=== PATIENT | female | born 1935 | race Caucasian/White ===

== ENCOUNTER → 2016-04-27 | Outpatient (CLI) | payer MEDICARE, OTHER ==
[~2016-04-27] MED LIST: ACARBOSE PO; ACARBOSE25 MG PO; ASPIRIN81 M2 PO; ASPIRIN81 MG PO; CALTRATE 600+D PO; CALTRATE 600+D1 EACH PO; CARVEDILOL6.25 MG PO; CEPHALEXIN500 M1 PO; COREG6.25 M1 PO; GABAPENTIN300 M2 PO; GABAPENTIN300 MG PO; KEFLEX PO; LACTULOSE10 G/15 M1 PO; LACTULOSE20 GM/30 M PO; LEVAQUIN PO; LEVEMIR; LEVEMIR100 UNITS/ SUBQ; LIPITOR20 MG PO; LIPITOR40 MG PO; LISINOPRIL10 MG PO; LO-DOSE ASPIRIN81 M1 PO; MAG-OX 400400 M1 PO; MAGNESIUM400 MG PO; NOVOLOG100 U/ML; NOVOLOG100 UNITS/; OMEPRAZOLE40 M1 PO; PENTOXIFYLINE100 GM PO; POTASSIUM CHLO20 ME1 PO; PRILOSEC PO; PRINIVIL10 MG PO; REMERON PO; XIFAXAN550 MG PO; ZINC SULFATE220 M1 PO
[2016-04-27 14:40] LABS: ALBUMIN SERUM 3.4 g/dL (3.5-5.0); BILIRUBIN,TOTAL 0.9 mg/dL (0.2-2.0); BUN/CREATININE RATIO 16.42; CALCIUM SERUM 8.8 mg/dL (8.4-10.2); CREATININE SERUM 1.4 mg/dL (0.6-1.4); GLOM FILT RATE Estimated 38.7 mL/min (>60); PROTEIN TOTAL SERUM 6.2 g/dL (6.0-8.3)
== END | disposition home or self-care (01) ==
LOC: SLAB 13:45
PROVIDERS: Internal Medicine Endocrinology, Diabetes & Metabolism
DX: E11.65 Type 2 diabetes mellitus with hyperglycemia (principal)
CPT/HCPCS: 36415; 80053; 83036

== ENCOUNTER → 2016-05-06 | Outpatient (CLI) | payer MEDICARE, OTHER ==
--- NOTE | ~2016-05-06 | US77 ---
[facility] A Service of [facility] RADIOLOGY TEXT RESULTS PATIENT: REBEKAH PAYTON LOCATION: [facility] : 37 UNIT #: [id number] AGE: [address]: Kyleigh Quintero MD SEX: F ORDER DR: [id number] [address] [address] [id number] O MR#: [id number] Acc #: [id number] NAME: REBEKAH PAYTON : 1935 SEX: F STUDY DATE/TIME: 05/06/2016 13:48 UNIT: CGUS ROOM: STUDY DESCRIPTION: US Kidney Bilateral Complete Attending Physician: Kyleigh Quintero M.D. Referring Physician: Kyleigh Quintero M.D. Ordering Physician: Kyleigh Quintero M.D. Primary Care Physician: Karime Fraser M.D. MEDICAL IMAGING REPORT This report is preliminary unless electronic signature is present EXAM Renal ultrasound. HISTORY Chronic kidney disease, stage III. PROCEDURE Grayscale and Doppler imaging of the kidneys and bladder. COMPARISON 10/11/2013 FINDINGS The right kidney measures 8 cm. Slightly increased echotexture. Left kidney measures 10.1 cm. There is a 2.6-cm cyst in the upper pole of the left kidney. No hydronephrosis. Unremarkable bladder. IMPRESSION 1. Slightly increased renal echotexture suggesting change of chronic renal disease. 2. Cyst in the upper pole of the left kidney. Dictated by... Nino Cruz M.D. THIS IS AN ELECTRONICALLY VERIFIED REPORT Nino Cruz M.D. at 05/08/2016 9:51 PM DAGOBERTO/vishnu TD: 05/06/2016 18:20 [facility] A Service [facility] RADIOLOGY TEXT RESULTS PATIENT: REBEKAH PAYTON LOCATION: [facility] : 37 UNIT #: [id number] AGE: [address]: Kyleigh Quintero MD SEX: F ORDER DR: LO #: [id number] MEDICAL IMAGING REPORT Page 1 of 1 COPY
== END | disposition home or self-care (01) ==
LOC: CGUS 13:10
DX: N18.3 Chronic kidney disease, stage 3 (moderate) (principal); N28.1 Cyst of kidney, acquired
CPT/HCPCS: 76770

== ENCOUNTER 2016-05-22 04:39 | Inpatient (IN) | payer MEDICARE, OTHER ==
--- NOTE | ~2016-05-22 | EKG ---
PATIENT: REBEKAH PAYTON UNIT #: [id number] Ventricular Rate: 76 BPM Atrial Rate: 76 BPM P-R Interval: 186 ms QRS Duration: 82 ms Q-T Interval: 406 ms QTC Calculation(Bezet): 456 ms P Tifton: 70 degrees Calculated R Tifton: -15 degrees Calculated T Tifton: 70 degrees Diagnosis Line: Normal sinus rhythm Diagnosis Line: Normal ECG Diagnosis Line: No previous ECGs available Diagnosis Line: Confirmed by LOUISE SHEPPARD MD ([id number]) on Diagnosis Line: 05/22/2016 3:54:38 PM INTERPRETING MD: FIONA
--- NOTE | ~2016-05-22 | XA170 ---
[facility] A Service of [facility] RADIOLOGY TEXT RESULTS PATIENT: REBEKAH PAYTON LOCATION: [facility] 562-01 : 37 UNIT #: [id number] AGE: [address]: Isabella Tirado MD SEX: F ORDER DR: [id number] [facility] [address] [place], [place] [address] [id number] I MR#: [id number] Acc #: [id number] NAME: REBEKAH PAYTON : 1935 SEX: F STUDY DATE/TIME: 05/23/2016 7:49 UNIT: [facility] ROOM: [facility] STUDY DESCRIPTION: XA Paracentesis W Image Attending Physician: Isabella Tirado M.D. Ordering Physician: Amrit Carpenter M.D. Primary Care Physician: Karime Fraser M.D. MEDICAL IMAGING REPORT This report is preliminary unless electronic signature is present EXAM Attempted ultrasound guided paracentesis. INDICATIONS Cirrhosis. Patient does give a history of a TIPS. PROCEDURE Four-quadrant ultrasound was performed which did not show any fluid. The procedure was subsequently aborted. IMPRESSION No ascites was identified. The procedure was subsequently terminated. Dictated by... Mely Rodrigez M.D. THIS IS AN ELECTRONICALLY VERIFIED REPORT Mely Rodrigez M.D. at 05/24/2016 12:55 PM AFF/dj TD: 05/24/2016 09:21 JOB #: [id number] MEDICAL IMAGING REPORT Page 1 of 1 COPY
--- NOTE | ~2016-05-22 | HP ---
Unit #: [id number] #: [id number] Patient: REBEKAH PAYTON [id number] [address] [address] [id number] I MR#: [id number] NAME: REBEKAH PAYTON ROOM: 562 Age: 80 Sex: F Admission Date: 05/22/2016 : 1935 Attending Physician: Isabella Tirado M.D. Primary Care Physician: Karime Fraser M.D. HISTORY AND PHYSICAL REASON FOR ADMISSION Altered mental status. HISTORY OF PRESENT ILLNESS The patient is a very pleasant 80-year-old frail female accompanied by her , as well as daughter, present at bedside. She resides at home usually with her who states that, over the past several weeks, she has had increased and profound weakness, as well as increased confusion. He states that, over the past month, approximately one week out of that month the patient is somewhat oriented. Otherwise, she remains bedridden, as well as fairly disoriented on most days. Because of the past several days of disorientation, he became concerned for possible UTI and/or hepatic etiology and, therefore, brought the patient into the hospital for further evaluation. Initial evaluation yielded an elevated lactic acid level of 2.4. Initial urinalysis was mildly positive with leukocyte esterase, as well as bacteria. Her sodium was 146, creatinine 1.5, but her ammonia was significantly elevated at 232. She is being admitted for the same, hepatic encephalopathy, confusion, as well as endstage liver disease. PAST MEDICAL HISTORY 1. 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 2. Hepatic encephalopathy, followed by Dr. Webber at [facility]. 3. Prior history of rectal mass, followed by Dr. Phillips at [facility]. 4. Hypertension. 5. Hyperlipidemia. 6. Diabetes. 7. Failure to thrive. 8. Cholecystectomy. 9. Hysterectomy. 10. Knee surgery. 11. Hemorrhoid surgery. 12. Prior history of TIPS procedure in 2011. HOME MEDICATIONS Omeprazole, Lipitor, zinc, carvedilol, Caltrate, gabapentin, Trental, Xifaxan, NovoLog, Levemir, lactulose, magnesium, Prinivil, aspirin. ALLERGIES No known drug allergies. Unit #: [id number] #: [id number] Patient: REBEKAH PAYTON SOCIAL HISTORY Resides at home with her . No illicit drug use. No tobacco use. No alcohol use. FAMILY HISTORY Reviewed. Noncontributory. Not pertinent. REVIEW OF SYSTEMS Please see HPI. A 12-point review otherwise negative except for those positively noted in the HPI. PHYSICAL EXAMINATION VITAL SIGNS: Temperature 98.1, pulse 75, respiratory rate 13, blood pressure 173/89. GENERAL APPEARANCE: A 80-year-old female lying comfortably, alert and oriented x0. HEAD EXAM: Atraumatic, normocephalic. EAR EXAM: Tympanic membranes do not reveal any erythema or injection. NECK: Supple. CVS EXAM: S1, S2 without murmur. RESPIRATORY EXAM: Coarse breath sounds are noted bilaterally. GI/ABDOMEN: Nontender, nondistended. LOWER EXTREMITY EXAM: No evidence of any lower extremity edema. NEUROLOGIC: The patient is alert and oriented x0. DIAGNOSTIC STUDIES INITIAL LABORATORY STUDIES: Please see above. Ammonia 232. Lactic acid 2.4. Urine tox negative. INITIAL ADMISSION DIAGNOSES 1. Hepatic encephalopathy. 2. Profound weakness. 3. Failure to thrive. 4. Endstage cirrhosis. 5. WILHELM. 6. Prior history of TIPS procedure. 7. Hypertension. 8. Hyperlipidemia. 9. Diabetes with insulin dependence. 10. Chronic kidney disease. Baseline creatinine, I believe, close to 1.5. 11. Chronic immobility syndrome. PLAN 1. Admission to telemetry floor. Begin lactulose p.o. q.6. Follow ammonia levels. GI consultation. Routine medications, including p.o. medications for now, will be placed on hold as her mental status is not stable enough for her to take anything orally. 2. Will conduct routine Accu-Cheks with insulin low dose sliding scale. 3. I did have a discussion with both the patient's , as well as the patient's daughter, who was present at bedside, and apprised them of the patient's overall prognosis, which, at best, is guarded/poor. Her life expectancy is likely weeks to months at best. At this point in time, they wish for DNR status. I opened up the discussion in regard to overall Hospice care. The , as well as daughter, will discuss with other family members, and consideration may be given to Hospice care in the morning for ongoing evaluation and care. Overall, the patient's quality of life is very poor. Unit #: [id number] #: [id number] Patient: REBEKAH PAYTON NOTE: Time spent - approximately 55 minutes. Dictated by Kwaku Dutta/elicia TD: 05/24/2016 07:47 JOB #: [id number] HISTORY AND PHYSICAL Page 1 of 1 X Isabella Tirado MD X HISTORY AND PHYSICAL
--- NOTE | ~2016-05-22 | CR72 ---
[facility] A Service of [facility] & [facility] RADIOLOGY TEXT RESULTS PATIENT: REBEKAH PAYTON LOCATION: [facility] [id number] : 37 UNIT #: [id number] AGE: [address]: Isabella Tirado MD SEX: F ORDER DR: [id number] [facility] [address] [place], [place] [address] [id number] I MR#: [id number] Acc #: [id number] NAME: REBEKAH PAYTON : 1935 SEX: F STUDY DATE/TIME: 05/22/2016 4:35 UNIT: [facility] ROOM: 14445 STUDY DESCRIPTION: CR Chest Single View Portable Attending Physician: Isabella Tirado M.D. Ordering Physician: Neil Borja M.D. Primary Care Physician: Karime Fraser M.D. MEDICAL IMAGING REPORT This report is preliminary unless electronic signature is present EXAM Portable chest INDICATIONS Increasing weakness, confusion and shortness of air in the last couple days. 05/22 COMPARISON 12/19/2015. FINDINGS A portable view of the chest is obtained. The heart size and vascularity are normal and the lungs are clear. The bones are unremarkable. IMPRESSION No active disease. Dictated by... Chace Flood M.D. THIS IS AN ELECTRONICALLY VERIFIED REPORT Chace Flood M.D. at 05/22/2016 9:55 PM FEL/kat TD: 05/22/2016 19:16 JOB #: [id number] MEDICAL IMAGING REPORT Page 1 of 1 COPY
--- NOTE | ~2016-05-22 | DS ---
Unit #: [id number] #: [id number] Patient: REBEKAH PAYTON [id number] [address] [place], [place] [address] [id number] I MR#: [id number] NAME: REBEKAH PAYTON ROOM: 562 Age: 80 Sex: F Admission Date: 05/22/2016 : 1935 Discharge Date: 05/24/2016 Attending Physician: Isabella Tirado M.D. Primary Care Physician: Karime Fraser M.D. DISCHARGE SUMMARY REASON FOR ADMISSION Altered mental status, hepatic encephalopathy. HISTORY OF PRESENT ILLNESS/HOSPITAL COURSE The patient is a very pleasant 80-year-old frail female accompanied by her who presented secondary to acute mental status change. She does have a prior history of WILHELM with end-stage cirrhosis followed by Dr. Webber with [facility]. She also has a prior history of hypertension, hyperlipidemia, diabetes, failure to thrive. She was admitted after her ammonia level was noted to be 232, creatinine 1.5, and she did have an abnormal urinalysis. In regard to her abnormal urinalysis, final urine culture did reveal Klebsiella sensitivity to Levaquin to which she will be given a prescription at time of discharge. In regard to her elevated ammonia as well as hepatic encephalopathy, consultation was placed to Dr. Carpenter. Her lactulose was increased to q.4 hours. Her ammonia level did decrease into the mid 40s. At the present time, she is alert and oriented x2. Dr. Carpenter recommended patient follow up as an outpatient with Dr. Webber for possible revision of her prior TIPS that she does have done secondary to recurrent hospital admissions secondary to hepatic encephalopathy. Overall and unfortunately the patient's long-term prognosis is guarded/poor at best. The patient was made a DNR through this hospital admission and discussion was had with the patient's and consideration of possible hospice consultation. At this point in time, the patient will follow up with Dr. Webber for discussion as well as evaluation in regard to her history of WILHELM/end-stage cirrhosis. If TIPS revision is possible and recurrent hospitalizations can be stopped, patient's is more inclined to continue current care; however, if patient continues to have recurrent hospitalizations despite all medical therapy, he states that he is agreeable to having hospice consultation. FINAL DISCHARGE DIAGNOSES 1. Altered mental status, likely secondary to hepatic encephalopathy as well as urinary tract infection. 2. End-stage cirrhosis, secondary to nonalcoholic steatohepatitis. 3. History of prior TIPS procedure, followed by Dr. Webber at [facility]. Unit #: [id number] #: [id number] Patient: REBEKAH PAYTON 4. Urinary tract infection. 5. Failure to thrive. 6. Hypertension. 7. Prior cerebrovascular accident history. 8. Prior history of rectal mass followed by Dr. York at the [facility]. 9. Gastroesophageal reflux disease. FINAL DISCHARGE MEDICATIONS 1. Lactulose 30 mg p.o. q.6. 2. Mag-Ox 400 mg p.o. b.i.d. 3. Xifaxan 550 mg p.o. b.i.d. 4. Coreg 3.125 mg p.o. b.i.d. 5. Acarbose 50 mg p.o. t.i.d. 6. Trental 400 mg p.o. b.i.d. 7. Lipitor 40 mg p.o. daily. 8. Lisinopril 2.5 mg p.o. daily. 9. NovoLog sliding scale as directed. 10. Levemir 40 units q.a.m. 20 units q.p.m. 11. Zinc sulfate 220 mg p.o. daily. 12. Aspirin 81 mg p.o. daily. 13. Omeprazole 40 mg p.o. daily. 14. Multivitamin daily. 15. Levaquin 500 mg p.o. daily x5 days. DISCHARGE CONDITION Stable. DISCHARGE DISPOSITION Home. FOLLOWUP Dr. Webber, [facility], as an outpatient. Dictated by... Isabella Tirado M.D. Maynor TD: 05/25/2016 10:18 JOB #: [id number] DISCHARGE SUMMARY Page 1 of 1 X Isabella Tirado MD DISCHARGE SUMMARY
--- NOTE | ~2016-05-22 | CO ---
Unit #: [id number] #: [id number] Patient: REBEKAH LARSEN [address] [facility]. [place], [place] [address] [id number] I MR#: [id number] NAME: REBEKAH LARSEN ROOM: 562 Age: 80 Sex: F Admission Date: 05/22/2016 : 1935 Attending Physician: Isabella Tirado M.D. Primary Care Physician: Karime Fraser M.D. CONSULTATION REPORT PRIMARY CARE PHYSICIAN Karime Fraser M.D. REASON FOR CONSULTATION Hepatic encephalopathy. HISTORY OF PRESENT ILLNESS Ms. Larsen is a very pleasant 80-year-old white female. The patient was found nearly obtunded at home and thus brought to the hospital. She has a longstanding history of chronic liver disease as a result of cirrhosis from nonalcoholic steatohepatitis. She normally sees Dr. 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 Apparently, the patient became increasingly somnolent and confused over the past couple of days and thus brought to the hospital. After detailed discussion with the patient's who is primary caregiver, the patient tends to have these episodes about once a month that end up hospitalization for short periods of time. There is no history of overt GI bleed in the form of hematemesis, melena, or hematochezia. The patient denies any history of abdominal pain. No history of fever, chills, or rigors. Although, the patient's feels that she has developed some abdominal distention may have ascites, the patient herself is not complaining about it. PAST MEDICAL HISTORY Significant for history of cirrhosis due to WILHELM. The patient also had TIPS procedure done in 2011 for ascites which definitely helped the latter; however, hepatic encephalopathy has gotten worse as predictably worse. She has also history of type 2 diabetes, hypertension, hyperlipidemia, and also history of rectal mass operated by colorectal surgeon Dr. Clinton Phillips at [facility]. PAST SURGICAL HISTORY Included cholecystectomy, hysterectomy, knee surgery, hemorrhoid surgery, and a TIPS procedure. SOCIAL HISTORY The patient does not smoke or drink alcohol. Does not use any recreational drugs. Lives at home with her . FAMILY HISTORY None of colon, pancreatic cancer, or liver disease. ALLERGIES No known drug allergies. Unit #: [id number] #: [id number] Patient: REBEKAH LARSEN MEDICATIONS At home, the patient has long list of medications. These 2 include lactulose and Xifaxan along with magnesium, gabapentin, acarbose, Coreg, pentoxifylline, Lipitor, lisinopril, Levemir, NovoLog insulin, zinc sulfate, aspirin, omeprazole, and calcium. REVIEW OF SYSTEMS Detailed review of organ systems does not reveal any recent weight loss. No history of fever, chills, or rigors. No history of headache, seizures, chest pain, or syncope. No history of cough, expectoration, or hemoptysis. No history of dysuria, hematuria, or pyuria. No history of focal seizures or extremity weakness. There is history of generalized somnolence as mentioned above. PHYSICAL EXAMINATION GENERAL: She is awake, alert, but appears lethargic. VITAL SIGNS: Stable. Temperature of 98.1, pulse is 95 per minute and regular, respirations 16, blood pressure is 169/88. She weighs 143 pounds, which is close to her baseline weight. HEENT: She has mild pallor. There being no icterus, lymphadenopathy, or peripheral edema. CARDIOVASCULAR: Reveals normal heart sounds. No murmurs on auscultation. LUNGS: Reveals normal breath sounds. Good air entry. ABDOMEN: Soft and nontender. Liver and spleen are not palpable. Bowel sounds normal. No clear-cut ascites is discernible on clinical examination. Hernial sites are normal. DIAGNOSTIC STUDIES LABORATORY RESULTS: Shows a hemoglobin of 12, white count of 3.4 and thrombocytopenia with a platelet count of 60,000. Serum chemistry shows a BUN and creatinine of 19 and 1.5, sodium 146, potassium 3.6, CO2 of 19, and sugar of 161, albumin is 3.4. AST, ALT, alkaline phosphatase are all normal. The ammonia level on admission was 232, it is the highest level that has been recorded. Glycohemoglobin was 6.9. CLINICAL IMPRESSION The patient with cirrhosis of liver due to nonalcoholic steatohepatitis, presenting with hepatic encephalopathy. The issue of compliance with lactulose therapy was investigated in detail and it seems that the patient has been taking lactulose at home courtesy of her help from . There is no overt gastrointestinal bleed. No history of obvious infection. However, her urinalysis does show 4+ bacteria. MANAGEMENT PLAN Include aggressive lactulose therapy along with Xifaxan and treatment of urinary tract infection with antibiotics, lastly would also suggest ruling out spontaneous bacterial peritonitis by a diagnostic paracentesis later today. The single most important step that can be taken in this patient's management would be to optimize the size of the TIPS shunt. After detailed questioning with the and explaining him that if we reduce the size of the shunt a little bit, we may achieve the ideal shunt size, so as to eliminate or considerably reduce hepatic encephalopathy episodes. The told me that this was offered to him and his by plastic welding machine operator at [facility] by Dr. Webber and his group; however, the patient did not want "the surgery." I have taken Unit #: [id number] #: [id number] Patient: REBEKAH LARSEN considerable time to explain to the patient and that this would be the most optimum way forward to manage the hepatic encephalopathy which is greatly affecting quality of life. Thank you very much for asking me to see this pleasant woman. I appreciate the consult. Dictated by... Kwaku Aguilar/collin TD: 05/23/2016 04:35 JOB #: [id number] CC: Ismael Walls M.D. CONSULTATION REPORT Page 1 of 1 X Amrit Carpenter MD CONSULTATION REPORT
[~2016-05-22 04:39] MED LIST changes: -ASPIRIN81 MG PO; -CALTRATE 600+D1 EACH PO; -CEPHALEXIN500 M1 PO; -LACTULOSE20 GM/30 M PO; -LEVAQUIN PO; -LIPITOR40 MG PO; -NOVOLOG100 UNITS/; -REMERON PO
[2016-05-22 04:48] LABS: POC - TROPONIN <0.05 ng/mL (<=0.05)
[2016-05-22 04:57] LABS: BASOPHIL% 0.8 % (0-2.5); EOSINOPHIL# 0.6 X10e3 (0-0.7); EOSINOPHIL% 18.6 % (0.0-7.0); HEMATOCRIT 36.3 % (35.0-45.0); LYMPHOCYTE# 0.7 X10e3 (1.0-3.5); LYMPHOCYTE% 19.2 % (17.0-45.0); MEAN CELL VOLUME 85.6 FL (83-96); MEAN CORPUSCULAR HEMOGLOBIN 28.3 PG (28-34); MEAN PLATELET VOLUME 9.7 FL (6.5-11.5); MONOCYTE# 0.3 X10e3 (0-1.0); MONOCYTE% 8.4 % (3.0-12.0); NEUTROPHIL# 1.8 X10e3 (1.5-7.1); RED BLOOD COUNT 4.24 X10e (3.90-5.30); RED CELL DISTRIBUTION WIDTH 15.3 % (11.0-15.5); WHITE BLOOD COUNT 3.4 X10e3 (4.0-10.5)
[2016-05-22 05:12] LABS: DIFF IND YES; PLATELET COUNT 60 X10e3 (140-420)
[2016-05-22 05:13] LABS: INR 1.2; PARTIAL THROMBOPLASTIN TIME 25.7 SECONDS (23.5-31.3); PROTHROMBIN TIME (PATIENT) 12.3 SECONDS (9.6-11.5)
[2016-05-22 05:16] LABS: ANISOCYTOSIS SL; PLATELET ESTIMATE DECREASED (NORMAL)
[2016-05-22 05:32] LABS: ALBUMIN SERUM 3.4 g/dL (3.5-5.0); BILIRUBIN, DIRECT 0.1 mg/dL (0.0-0.2); BILIRUBIN,INDIRECT 0.9 mg/dL (0.0-0.9); BUN/CREATININE RATIO 12.66; CREATININE SERUM 1.5 mg/dL (0.6-1.4); POTASSIUM 3.6 mmol/L (3.5-5.1); PROTEIN TOTAL SERUM 6.3 g/dL (6.0-8.3)
[2016-05-22 05:38] LABS: POC - CKMB 2.8 ng/mL (0.0-7.9); POC - TROPONIN <0.05 ng/mL (<=0.05)
[2016-05-22 05:49] LABS: URINE APPEARANCE CLEAR; URINE BILIRUBIN NEG (NEG); URINE BLOOD TRACE (NEG); URINE COLOR YELLOW; URINE GLUCOSE NEG (NEG); URINE KETONE NEG (NEG); URINE LEUKOCYTE ESTERASE TRACE (NEG); URINE NITRATE NEG (NEG); URINE PROTEIN NEG (NEG); URINE SPECIFIC GRAVITY 1.009 (1.003-1.035); URINE UROBILINOGEN 0.2 MG/DL (NEG)
[2016-05-22 05:51] LABS: CULTURE INDICATED? YES; URBCS1 AUWI 0-2 /[HPF] (0-2); URINE BACTERIA AUWI 4+ (NEGATIVE); URINE SQUAMOUS EPITHELIAL CELL OCC /[HPF]
[2016-05-22 05:55] LABS: URINE SOURCE CATH
[2016-05-22 06:14] LABS: AMPHETAMINE NEG (NEG); BARBITURATES NEG (NEG); BENZODIAZEPINES NEG (NEG); COCAINE NEG (NEG); MARIJUANA NEG (NEG); OPIATES NEG (NEG); TRICYCLIC ANTIDEPRESSANTS NEG (NEG); U METHADONE NEG (NEG)
[2016-05-22] MEDS ORDERED: OMEPRAZOLE40 M1 PO (06:53)
[2016-05-22] MEDS ORDERED: ZINC SULFATE220 M1 PO (06:53)
[2016-05-22] MEDS ORDERED: LIPITOR40 MG PO (06:53)
[2016-05-22] MEDS ORDERED: GABAPENTIN300 MG PO (06:54)
[2016-05-22] MEDS ORDERED: CARVEDILOL6.25 MG PO (06:54)
[2016-05-22] MEDS ORDERED: CALTRATE 600+D1 EACH PO (06:54)
[2016-05-22] MEDS ORDERED: NOVOLOG100 UNITS/ (06:55)
[2016-05-22] MEDS ORDERED: PENTOXIFYLINE100 GM PO (06:55)
[2016-05-22] MEDS ORDERED: XIFAXAN550 MG PO (06:55)
[2016-05-22] MEDS ORDERED: LACTULOSE20 GM/30 M PO (06:56)
[2016-05-22] MEDS ORDERED: LEVEMIR100 UNITS/ SUBQ (06:56)
[2016-05-22] MEDS ORDERED: MAGNESIUM400 MG PO (06:57)
[2016-05-22] MEDS ORDERED: ACARBOSE PO (06:57)
[2016-05-22] MEDS ORDERED: ASPIRIN81 MG PO (06:58)
[2016-05-22] MEDS ORDERED: LISINOPRIL10 MG PO (06:58)
[2016-05-22] MEDS ORDERED: REMERON PO (06:58)
[2016-05-22] MEDS ORDERED: CEPHALEXIN500 M1 PO (06:59)
[2016-05-23 07:27] LABS: INR 1.3; PROTHROMBIN TIME (PATIENT) 13.4 SECONDS (9.6-11.5)
[2016-05-23 07:28] LABS: BASOPHIL% 0.9 % (0-2.5); EOSINOPHIL# 0.6 X10e3 (0-0.7); EOSINOPHIL% 16.4 % (0.0-7.0); HEMATOCRIT 29.6 % (35.0-45.0); HEMOGLOBIN 9.9 gm/dL (12.0-16.0); LYMPHOCYTE# 0.7 X10e3 (1.0-3.5); MEAN CELL VOLUME 85.8 FL (83-96); MEAN CORPUSCULAR HEMOGLOBIN 28.5 PG (28-34); MEAN CORPUSCULAR HGB CONC 33.3 g/dL (30-36); MEAN PLATELET VOLUME 9.4 FL (6.5-11.5); MONOCYTE# 0.3 X10e3 (0-1.0); MONOCYTE% 7.5 % (3.0-12.0); NEUTROPHIL% 55.2 % (40-75); PLATELET COUNT 60 X10e3 (140-420); RED BLOOD COUNT 3.46 X10e (3.90-5.30); RED CELL DISTRIBUTION WIDTH 15.4 % (11.0-15.5); WHITE BLOOD COUNT 3.5 X10e3 (4.0-10.5)
[2016-05-23 07:29] LABS: DIFF IND NO
[2016-05-23 07:48] LABS: BILIRUBIN,TOTAL 1.7 mg/dL (0.2-2.0); BUN/CREATININE RATIO 18.33; CALCIUM SERUM 8.3 mg/dL (8.4-10.2); CREATININE SERUM 1.2 mg/dL (0.6-1.4); GLOM FILT RATE Estimated 43.3 mL/min (>60); POTASSIUM 3.8 mmol/L (3.5-5.1); PROTEIN TOTAL SERUM 5.6 g/dL (6.0-8.3)
[2016-05-24 06:21] LABS: HEMATOCRIT 29.8 % (35.0-45.0); HEMOGLOBIN 10.2 gm/dL (12.0-16.0); MEAN CELL VOLUME 84.1 FL (83-96); MEAN CORPUSCULAR HEMOGLOBIN 28.8 PG (28-34); MEAN CORPUSCULAR HGB CONC 34.3 g/dL (30-36); MEAN PLATELET VOLUME 8.7 FL (6.5-11.5); RED BLOOD COUNT 3.55 X10e (3.90-5.30); RED CELL DISTRIBUTION WIDTH 15.4 % (11.0-15.5); WHITE BLOOD COUNT 5.1 X10e3 (4.0-10.5)
[2016-05-24 06:55] LABS: ALBUMIN SERUM 2.8 g/dL (3.5-5.0); BILIRUBIN,TOTAL 1.4 mg/dL (0.2-2.0); CALCIUM SERUM 8.7 mg/dL (8.4-10.2); CREATININE SERUM 1.3 mg/dL (0.6-1.4); GLOM FILT RATE Estimated 39.3 mL/min (>60); POTASSIUM 3.5 mmol/L (3.5-5.1); PROTEIN TOTAL SERUM 5.6 g/dL (6.0-8.3)
[2016-05-24] MEDS ORDERED: LEVAQUIN PO (14:11)
== END 2016-05-24 18:02 | disposition home or self-care (01) | DRG 441 ==
LOC: CED 04:39 → CEDOF 07:20 → C5B 23:01
PROVIDERS: Emergency Medicine; Family Medicine
DX: K72.90 Hepatic failure, unspecified without coma (principal); G92 Toxic encephalopathy; K75.81 Nonalcoholic steatohepatitis (NASH); E11.22 Type 2 diabetes mellitus with diabetic chronic kidney disease; N39.0 Urinary tract infection, site not specified; K74.60 Unspecified cirrhosis of liver; I12.9 Hypertensive chronic kidney disease with stage 1 through stage 4 chronic kidney disease, or unspecified chronic kidney disease; N18.9 Chronic kidney disease, unspecified; E78.5 Hyperlipidemia, unspecified; Z79.4 Long term (current) use of insulin; Z66 Do not resuscitate; B96.1 Klebsiella pneumoniae [K. pneumoniae] as the cause of diseases classified elsewhere; R62.7 Adult failure to thrive; Z86.73 Personal history of transient ischemic attack (TIA), and cerebral infarction without residual deficits; K21.9 Gastro-esophageal reflux disease without esophagitis; M62.3 Immobility syndrome (paraplegic); Z79.82 Long term (current) use of aspirin; Z90.49 Acquired absence of other specified parts of digestive tract; Z90.710 Acquired absence of both cervix and uterus; Z53.8 Procedure and treatment not carried out for other reasons
CPT/HCPCS: 51701; 71010; 80048; 80053; 80076; 80307; 81003; 82140; 82553; 82947; 83036; 83605; 84484; 85025; 85027; 85610; 85730; 87040; 87086; 87088; 87186; 93005; 94760; 96374; 99291; C9113; J1815; J1956; J2405

== ENCOUNTER → 2016-09-09 | Outpatient (CLI) | payer MEDICARE, OTHER ==
[~2016-09-09] MED LIST changes: +ASPIRIN81 MG PO; +CALTRATE 600+D1 EACH PO; +CEPHALEXIN500 M1 PO; +LACTULOSE20 GM/30 M PO; +LEVAQUIN PO; +LIPITOR40 MG PO; +NOVOLOG100 UNITS/; +REMERON PO
--- NOTE | ~2016-09-09 | US6 ---
[facility] A Service of [facility] RADIOLOGY TEXT RESULTS PATIENT: REBEKAH PAYTON LOCATION: [facility] : 37 UNIT #: [id number] AGE: [address]: Ismael Walls MD SEX: F ORDER DR: [id number] O MR#: [id number] Acc #: [id number] NAME: REBEKAH PAYTON : 1935 SEX: F STUDY DATE/TIME: 09/09/2016 9:59 UNIT: [facility] ROOM: STUDY DESCRIPTION: US Abdominal Limited Attending Physician: Ismael Walls M.D. Referring Physician: Ismael Walls M.D. Ordering Physician: Ismael Walls M.D. Primary Care Physician: Karime Fraser M.D. MEDICAL IMAGING REPORT This report is preliminary unless electronic signature is present. EXAM Right upper quadrant ultrasound 09/09/2016 INDICATIONS Cirrhosis. Chronic renal disease. No abdominal pain. TIPS placement 5 years ago. TECHNIQUE Sonographic imaging of the right upper quadrant was performed. COMPARISON 03/18/2016. FINDINGS The pancreas is not well visualized or assessed. The TIPS shunt catheter is present, that appears patent. Doppler spectral analysis was not requested or performed. The liver measures about 14 cm long axis and has a coarsened echotexture, most characteristic of cirrhosis. There is no ascites. The liver parenchyma is not well penetrated or evaluated to assess for the presence or absence of underlying masses and cross-sectional imaging with without contrast utilizing a CT or MRI protocol could be performed for further assessment of the liver if clinically desired or warranted. Right kidney non-obstructed, measuring 9.3 cm long axis. Imaging features suggest sequela of chronic renal parenchymal disease. Gallbladder surgically absent. IMPRESSION 1. Cirrhosis without evidence of ascites. 2. TIPS shunt catheter appears to be patent with color flow. 3. Surgical absence of the gallbladder. [facility] A Service of [facility] RADIOLOGY TEXT RESULTS PATIENT: [facility]BEK[facility]TON [id number] 37 UNIT #: [id number] AGE: [address]: Ismael Walls MD SEX: F ORDER DR: 4. Pancreas not well visualized or assessed. 5. Chronic renal parenchymal disease. 6. The common bile duct was not submitted for review by the technologist. It may have been obscured by bowel gas. Dictated by... Best Cordero M.D. THIS IS AN ELECTRONICALLY VERIFIED REPORT Best Cordero M.D. at 09/12/2016 3:27 PM ROXIE/eileen TD: 09/09/2016 22:51 JOB #: [id number] MEDICAL IMAGING REPORT Page 1 of 1
== END | disposition home or self-care (01) ==
LOC: SGUS 09:54
DX: K74.60 Unspecified cirrhosis of liver (principal); E11.22 Type 2 diabetes mellitus with diabetic chronic kidney disease; N18.3 Chronic kidney disease, stage 3 (moderate); I85.01 Esophageal varices with bleeding; Z90.49 Acquired absence of other specified parts of digestive tract
CPT/HCPCS: 76705